=== PATIENT | female | born 1985 | race Caucasian/White ===

== ENCOUNTER 2021-01-24 14:21 | Emergency (ER) | payer OTHER ==
[~2021-01-24 14:21] MED LIST: MEDROL 4MG DOSEP4 MG PO; TESSALON PERLE100 MG PO
[2021-01-24] MEDS ORDERED: NAPROXEN500 MG PO (14:51)
== END 2021-01-24 15:09 | disposition home or self-care (01) ==
LOC: FER 14:21
DX: G56.01 Carpal tunnel syndrome, right upper limb (principal); F17.210 Nicotine dependence, cigarettes, uncomplicated; Z88.2 Allergy status to sulfonamides; Z88.8 Allergy status to other drugs, medicaments and biological substances
CPT/HCPCS: 99283

== ENCOUNTER 2021-11-23 22:29 | Emergency (ER) | payer OTHER ==
[~2021-11-23 22:29] MED LIST changes: +NAPROXEN500 MG PO
== END 2021-11-24 00:26 | disposition home or self-care (01) ==
LOC: FER 22:29
DX: M79.621 Pain in right upper arm (principal); F17.200 Nicotine dependence, unspecified, uncomplicated; J45.909 Unspecified asthma, uncomplicated; Z88.8 Allergy status to other drugs, medicaments and biological substances; Z88.2 Allergy status to sulfonamides
CPT/HCPCS: 73060